=== PATIENT | female | born 1995 | race Caucasian/White ===

== ENCOUNTER 2022-02-14 15:09 | Inpatient (IN) | payer BC ==
[2022-02-14] VITALS (19 sets, daily range): BP systolic 114–170; BP diastolic 60–93; PULSE 67–96; TEMP 98.3
[~2022-02-14] VITALS: Ht 167.6 cm; Wt 67.7 kg
[2022-02-14] MEDS ORDERED: PRENATAL TABLET PO (15:32)
[2022-02-14] MEDS ORDERED: ZOVIRAX400 MG PO (15:33)
--- NOTE | 2022-02-14 15:45 | NUR ---
1515- Pt arrives on unit ambulatory with complaints of possible SROM at approx 1430. Pt into bathroom to change into gown. 1520- Pt into bed, EFM and TOCO on and tracing well. O2 sat monitor on and tracing maternal HR. VSS. Assessments completed. Pt states she felt a small amount of fluid after voiding but then felt multiple small gushes after that. Denies VB. Pt states contractions started after SROM, Pt breathing throught UCs. 1540- Amniotrace positive. SVE 3-4/80/-2, small amount of fluid noted with exam.
[2022-02-14 16:18] LABS: HEMATOCRIT 37.9 % (37.0-47.0); HEMOGLOBIN 12.7 g/dl (12.5-16.0); MEAN CELL VOLUME 82 fl (80.0-100.0); MEAN CORPUSCULAR HEMOGLOBIN 27 pg (27-31); MEAN CORPUSCULAR HGB CONC 34 g/dl (33.0-37.0); MEAN PLATELET VOLUME 10.6 fl (7.4-10.4); PLATELET COUNT 295 K/mm3 (130-400); RED BLOOD COUNT 4.65 M/mm3 (4.10-5.30); REDCELL DISTRIBUTION WIDTH-CV 13.1 % (11.5-14.5)
[2022-02-14 16:30] LABS: BAND 10 % (0-10); EOSINOPHIL 1 % (0-4); LYMPHOCYTE 19 % (20.0-51.0); METAMYELOCYTE 2 % (0-0); NEUTROPHILS 61 % (42.0-75.2)
[2022-02-14 16:31] LABS: PLATELET ESTIMATE NORMAL (NORMAL)
--- NOTE | 2022-02-14 17:00 | NUR ---
1630- Pt assisted to sitting on side of bed for epidural placement. Kelly, HEALTH CARE COACH at bedside. FHR not tracing well due to maternal position. 1650- Test dose, see anesthesia record. 1656- Pt assisted to semi-fowlers with WL. EFM and TOCO adjusted and tracing. O2 sat monitor off.
--- NOTE | 2022-02-14 17:45 | NUR ---
1738- SVE by this RN due to FHR variable decels and Pt states feeling pressure with UCs, 5/90/-1. Pt repositioned to RL, FHR variable with slow return to baseline over 2 mins. Pt assisted to LL.
--- NOTE | 2022-02-14 18:15 | NUR ---
1756- FHR variable decel down to 65 bmp, lasting approx 60sec. SVE by this RN . Pt assisted to knee-chest. FHR tracing intermittently but 65bpm when tracing. 1802- O2 sat monitor on and tracing maternal HR. FHR noted in the 90's then slowly increased to 120bpm. 1809- Pt assisted to LL. FHR tolerated position chance until 1812 when deep variable noted down to 65bpm. WILFRED Hendrix and her orientee, Pat at bedside, report given, they assume care at this time.
--- NOTE | 2022-02-14 23:09 | NUR ---
PT ABLE TO MOVE HER LEGS BUT UNABLE TO RAISE HER HIPS OFF OF BED.
--- NOTE | 2022-02-14 23:45 | NUR ---
PT UNABLE TO RAISE HIPS OFF OF BED SITTING ON EDGE OF BED UNSTABLE TO STAND. sSARA/STEADY USDED FOR TRANSFER TO BATHROOM. VOIDS LARGE AMOUNT INSTUCTED ON OLIVIA CARE. TUCKS PLACED. TRANSFERED TO ROOM 215 PER ERICKA/DINORAH ORIENTED TO ROOM INSTRUCTED NOT TO GET UP WITHOUT CALLING STAFF. BABY AT BEDSIDE IN CRIB.
[2022-02-15 03:00] VITALS: BP 119/73; PULSE 64; TEMP 98.3
[2022-02-15 06:57] VITALS: BP 123/71; PULSE 90; TEMP 98.6
[2022-02-15 07:01] LABS: HEMATOCRIT 28.5 % (37.0-47.0)
[2022-02-15 07:02] LABS: HEMOGLOBIN 9.2 g/dl (12.5-16.0)
--- NOTE | 2022-02-15 09:15 | NUR ---
Initial visit; Patient thanked [employer] for offering congratulations and God's blessings for the of her son. [employer] thanked patient for choosing [facility].
[2022-02-15 20:40] VITALS: BP 112/68; PULSE 80; TEMP 97.7
[2022-02-16 08:15] VITALS: BP 108/60; PULSE 72; TEMP 98
[2022-02-16] MEDS ORDERED: PERCOCET 325 MG1 TA2 PO (09:16)
[2022-02-16] MEDS ORDERED: IBU600 MG PO (09:16)
--- NOTE | 2022-02-16 17:00 | NUR ---
1700 PT WHEELED OFF OF UNIT IN WHEELCHAIR WITH BABY IN ARMS DUE TO PARENTS HAVING CONVERTABLE CARSEAT. THIS RN WITNESSED BABY BEING STRAPPED INTO CARSEAT IN CORRECT POSITION. MOTHER AND BABY STABLE.
== END 2022-02-16 17:00 | disposition home or self-care (01) | DRG 806 ==
LOC: LDRO 15:09 → OB 15:52 → LDR 15:52 → OB 02-15 00:05
PROVIDERS: ADMIT Obstetrics & Gynecology
PROC: 10D07Z6 Extraction of Products of Conception, Vacuum, Via Natural or Artificial Opening (ICD-10-PCS; principal; 2022-02-14)
PROC: 0W8NXZZ Division of Female Perineum, External Approach (ICD-10-PCS; 2022-02-14)
DX: O99.824 Streptococcus B carrier state complicating childbirth (principal); O98.32 Other infections with a predominantly sexual mode of transmission complicating childbirth; Z37.0 Single live birth; O76 Abnormality in fetal heart rate and rhythm complicating labor and delivery; O90.81 Anemia of the puerperium; D64.9 Anemia, unspecified; A60.09 Herpesviral infection of other urogenital tract; O99.344 Other mental disorders complicating childbirth; F41.9 Anxiety disorder, unspecified; F32.A Depression, unspecified; F43.10 Post-traumatic stress disorder, unspecified; O69.1XX0 Labor and delivery complicated by cord around neck, with compression, not applicable or unspecified; Z3A.38 38 weeks gestation of pregnancy
CPT/HCPCS: J2540; J2590; J7120